=== PATIENT | female | born 1950 | race Caucasian/White ===

== ENCOUNTER → 2017-02-16 | Outpatient (CLI) | payer MEDICARE ==
--- NOTE | 2017-02-16 17:03 | REP ---
PET/CT: History: Diagnosing lung carcinoma. Left lung nodule increased in size. Comparisons: Comparison CT study [facility] 01/31/2017 and 10/26/2016. TECHNIQUE: 43 minutes following the intravenous injection of a 9.8 mCi dose of F-18 FDG, three-dimensional PET scintigraphy is acquired from the skull base to the proximal thighs. Triplanar noncontrast CT scanning is acquired through the same anatomic range for attenuation correction, and image registration with scan parameters optimized to minimize radiation exposure to the patient. PET scintigraphy and CT datasets were fused and displayed on a workstation with multiplanar and projection display capability. PET/CT Findings: There is no discernible FDG accumulation in the vicinity of the tiny left lower lobe pulmonary nodule on today's PET scintigraphy. Maximum standard uptake value in this region is 0.58. No other abnormal hypermetabolic uptake is seen in the thorax. No other pulmonary parenchymal nodule is seen. Head and neck soft tissues are unremarkable. In the abdomen and pelvis, there is normal hepatic, splenic, gastrointestinal and genitourinary FDG accumulation. No abnormal hypermetabolic uptake is seen. A right renal cyst is noted in the upper pole of the right kidney. Impression: Negative PET scintigraphy. No abnormal uptake is seen in the tiny left lower lobe pulmonary nodule. Continued CT follow-up suggested. Signed by Mono Sosa MD 02/16/2017 05:06 P
== END ==
LOC: M RAD 09:44
PROVIDERS: ATTEND Nurse Practitioner Adult Health
DX: R91.1 Solitary pulmonary nodule (principal)
CPT/HCPCS: 78815; A9552

== ENCOUNTER → 2018-02-21 | Outpatient (CLI) | payer MEDICARE ==
[2018-02-21 09:48] LABS: ABG BASE EXCESS 0.6 (-2.0-2.0); ABG HCO3 23.6 MEQ/L (22.0-26.0); ABG O2 SATURATION 97.8 % (95.0-99.0); ABG PARTIAL PRESSURE CO2 33.4 mmHg (35.0-45.0); ABG TOTAL CO2 24.6 MEQ/L (23.0-31.0); ABG pH (ARTERIAL) 7.467 UNITS (7.350-7.450)
== END ==
LOC: M CARPUL 09:03
DX: R06.02 Shortness of breath (principal)
CPT/HCPCS: 94060

== ENCOUNTER → 2018-12-11 | Outpatient (REF) | payer MEDICARE | LOC: M LAB REF 12:34 | PROVIDERS: ATTEND Internal Medicine | DX: Z01.89 Encounter for other specified special examinations (principal) ==

== ENCOUNTER → 2019-03-13 | Outpatient (CLI) | payer MEDICARE ==
--- NOTE | 2019-03-14 10:45 | REP ---
PET/CT: History: Diagnosing solitary pulmonary nodule. Comparison PET/CT February 16, 2017. Comparison chest CT scan is from February 21, 2019. TECHNIQUE: 53 minutes following the intravenous injection of a 9.67 mCi dose of F-18 FDG, three-dimensional PET scintigraphy is acquired from the skull base to the proximal thighs. Triplanar noncontrast CT scanning is acquired through the same anatomic range for attenuation correction, and image registration with scan parameters optimized to minimize radiation exposure to the patient. PET scintigraphy and CT datasets were fused and displayed on a workstation with multiplanar and projection display capability. PET/CT Findings: The recently identified wedge-shaped 2 cm opacity in the right lower lobe posterolateral lung gutter shows mildly hypermetabolic uptake. Maximum SUV value is 2.64. There is no other abnormal pulmonary parenchymal hypermetabolic uptake. No hilar or mediastinal hypermetabolic uptake is seen. The two other identified pulmonary nodules are stable and show no tracer uptake. Head and neck soft tissues are unremarkable. No abnormal uptake is seen in the abdomen or pelvis. There is a right renal cyst. Impression: Minimally hypermetabolic uptake in the wedge-shaped parenchymal opacity in the right lower lobe. This is nonspecific. Its wedge-shaped configuration suggests the possibility of inflammatory or atelectatic change. Interval CT followup recommended. Electronically Signed by Mono Sosa MD 03/14/2019 01:40 P
== END ==
LOC: M PLARAD 15:29
PROVIDERS: ATTEND Internal Medicine Pulmonary Disease
DX: R91.1 Solitary pulmonary nodule (principal)
CPT/HCPCS: 78815; A9552

== ENCOUNTER → 2019-06-07 | Outpatient (CLI) | payer MEDICARE ==
[~2019-06-07] MED LIST: ISOVUE-370 76% 100ML VIAL (Q9967) As Ordered ONE
--- NOTE | 2019-06-07 17:56 | REP ---
HISTORY: Followup pulmonary nodule. COMPARISON: All prior examinations were reviewed including images of lung bases from abdominal and pelvic CT scanning. The latest examination is dated 02/21/2019. The lack of intravenous contrast decreases the sensitivity of the exam. The mediastinum and pulmonary maria isabel are unchanged. There is no evidence of a mass or adenopathy. There are no pleural or pericardial effusions. There is no significant change in the appearance of the imaged upper abdomen. Note is again made of a solitary hepatic cyst in the posterior segment of the right lobe and note is again made of a partial imaged right renal cyst. There is no significant change in the appearance of the images osseous structures. Evaluation of the lung lopez show biapical pleural parenchymal scarring. The pleural based mass density in the right lower lobe seen on the latest prior examination has markedly improved. A minimal residual persists. There is cylindrical bronchiectasis, status quo. There are no new abnormal nodules, masses, or opacities. There is a tiny stable 3 mm sized nodule in the left upper lobe. IMPRESSION: Improvement and chronic changes as described above. There are no new abnormalities. According to the revised [place] Society criteria, yearly CT screening is recommended provided the patient's risk factors remain high. Electronically Signed by Mak Osorio DO 06/08/2019 10:31 A
== END ==
LOC: M RAD 13:31
PROVIDERS: ATTEND Internal Medicine Pulmonary Disease
DX: R91.1 Solitary pulmonary nodule (principal)

== ENCOUNTER 2020-01-16 13:02 | Emergency (ER) | payer MEDICARE ==
[~2020-01-16] VITALS: Ht 160 cm; Wt 64.3 kg
[2020-01-16] MEDS ORDERED: TRAM50TA2 (13:10)
[2020-01-16] MEDS ORDERED: MELO7.5T35 (13:10)
[2020-01-16] MEDS ORDERED: PANT40TA3 (13:10)
[2020-01-16] MEDS ORDERED: MORPHINE 4 MG/ML 1ML VIAL/SYRINGE (J2270) IM ONE (14:15)
[2020-01-16] MEDS ORDERED: ONDANSETRON 4 MG ORAL DISINTEGRATING TAB (Q0162 PER 1MG) PO ONE (15:00)
[2020-01-16] MEDS ORDERED: ONDA4TAB6 PO (15:43)
[2020-01-16] MEDS ORDERED: NORC1TAB7 PO (15:43)
--- NOTE | 2020-01-16 15:55 | REP ---
CT LUMBAR SPINE WITHOUT CONTRAST: HISTORY: Severe left-sided sciatica. Apparently, the patient has a history breast and ovarian carcinoma. Comparison lumbar spine MRI study September 28, 2018. CT FINDINGS: Lumbar vertebral body heights are preserved. Alignment is normal. There is no evidence of spondylolysis or spondylolisthesis. There is degenerative disc disease at multiple levels. There is a vacuum phenomenon and disc space narrowing at L3-4. Minimal narrowing is seen at L4-5 and L2-3. There is discogenic spurring and disc space narrowing at T12-L1. There is a very slight retrolisthesis of T12 posteriorly with respect to L1, 2 mm, unchanged from the comparison MRI study. No bony destructive lesion or collapse is seen. There are surgical clips in the retroperitoneum on the right and along the right iliac lymph node chain. There is a cyst in the right kidney which measures 4.2 cm in greatest diameter. No other extra vertebral abnormality is observed. There is a minimal levoconvex curvature on the coronal multiplanar re-formation images. Mild diffuse disc bulging is seen at T12-L1. No significant abnormality at L1-L2. At L2-L3, there is mild diffuse disc bulging. No central canal stenosis or foraminal narrowing is seen. No disc protrusion is seen. At L3-4, there is a broad-based disc bulge effacing the ventral subarachnoid space. Broad-based disc protrusion is suspected. This appears a bit larger than on the MRI study from September 28, 2018. The midline sagittal dimension of the thecal sac at this level is 9 mm on axial image, previously 11.7 mm. There is minimal ligamentum flavum and facet hypertrophy at L3-4. At L4-L5, there is diffuse disc bulging unchanged from prior study. Ligamentum flavum and facet hypertrophy is noted and canal size is borderline at L4-5 unchanged from the prior study. No bony neural foraminal narrowing is seen. At L5-S1, there is facet hypertrophy. No other significant finding. IMPRESSION: Degenerative spondylosis changes. Broad-based disc bulge/protrusion centrally at L3-4. This is increased in size from September 28, 2018 prior MRI study. It produces mild thecal sac compression. Electronically Signed by Mono Sosa MD 01/16/2020 06:31 P
[2020-01-16 15:57] VITALS: BP 124/57
--- NOTE | 2020-01-17 14:16 | ED PDOC ---
Post-Departure Follow-Up dr cardona faxed formal report of CT ls spine for fu Keely Sales MD Jan 17, 2020 14:16
== END 2020-01-16 15:58 | disposition home or self-care (01) ==
LOC: M ED 13:02
DX: M54.17 Radiculopathy, lumbosacral region (principal); M54.32 Sciatica, left side; M51.37 Other intervertebral disc degeneration, lumbosacral region; Z85.3 Personal history of malignant neoplasm of breast; Z85.43 Personal history of malignant neoplasm of ovary; Z86.79 Personal history of other diseases of the circulatory system; Z79.899 Other long term (current) drug therapy; Z88.6 Allergy status to analgesic agent; Z88.5 Allergy status to narcotic agent; Z88.1 Allergy status to other antibiotic agents
CPT/HCPCS: 72131; 96372; 99283; J2270; Q0162

== ENCOUNTER → 2021-01-09 | Outpatient (CLI) | payer MEDICARE ==
[~2021-01-09] MED LIST changes: -ISOVUE-370 76% 100ML VIAL (Q9967) As Ordered ONE; +MELO7.5T35; +NORC1TAB7 PO; +ONDA4TAB6 PO; +PANT40TA29; +TRAM50TA2
--- NOTE | 2021-01-09 11:48 | REP ---
INDICATION: F/U RT RENAL CYSTCHRONIC COUGH US 1ST XR 2ND COMPARISON: None. TECHNIQUE: PA and lateral. FINDINGS: The mediastinum and cardiac silhouette are normal. The lung lopez are clear and without acute consolidation, effusion, or pneumothorax. The skeletal structures are intact and normal. Evidence for prior right axillary node dissection. IMPRESSION: No acute cardiopulmonary process. <Electronically signed by Gurpreet Amos > 01/09/21 [id number]
--- NOTE | 2021-01-09 11:50 | REP ---
INDICATION: F/U RT RENAL CYSTCHRONIC COUGH US 1ST XR 2ND COMPARISON: None TECHNIQUE: Real time pavon scale ultrasound examination using curved array transducer. FINDINGS: Left kidney measures 9.7 x 3.8 x 4.7 cm and is normal in contour, size, echogenicity, and reniform shape. No hydronephrosis, nephrolithiasis, cystic or renal mass lesion appreciated. Right kidney measures 10.5 x 4.4 x 3.6 cm and includes 4.1 x 4.5 x 4.2 cm simple upper pole cyst. No hydronephrosis, nephrolithiasis, or renal mass lesion. Bladder is unremarkable. IMPRESSION: 4.5 cm simple appearing right upper pole renal cyst. <Electronically signed by Gurpreet Amos > 01/09/21 [id number]
== END ==
LOC: M RAD 11:11
PROVIDERS: ATTEND Internal Medicine
DX: R05 Cough (principal); Z09 Encounter for follow-up examination after completed treatment for conditions other than malignant neoplasm; N28.1 Cyst of kidney, acquired

== ENCOUNTER → 2021-03-25 | Outpatient (CLI) | payer MEDICARE ==
[~2021-03-25] MED LIST changes: +PROHANCE 279.3MG/ML 15ML VIAL As Ordered ONE
--- NOTE | 2021-03-25 11:31 | REPVR ---
PROCEDURE INFORMATION: Exam: MR Lumbar Spine Without and With Contrast Exam date and time: 03/25/2021 10:46 AM Age: 70 years old Clinical indication: Low back pain; Additional info: Ddd lumbar ? mets TECHNIQUE: Imaging protocol: Multiplanar magnetic resonance images of the lumbar spine without and with intravenous contrast. Contrast material: PROHANCE; Contrast volume: 6 ml; Contrast route: INTRAVENOUS (IV); COMPARISON: CT Spine, lumbar w/o contrast 01/16/2020 2:58 PM FINDINGS: Vertebrae: There is a mild lumbar levoscoliosis. There is no fracture or listhesis. There is diffuse marrow heterogeneity, potentially marrow conversion, with superimposed hemangiomas. There is no abnormal enhancement. Spinal cord: The conus medullaris terminates at T12/L1. L1-L2: There is shallow disc bulging. There is mild facet hypertrophy. There is mild right neural foraminal narrowing. L2-L3: There is shallow disc bulging. There is mild facet hypertrophy. There is mild right neural foraminal narrowing. L3-L4: There is shallow disc bulging. There is mild facet hypertrophy. There is [id number] bilateral neural foraminal narrowing. L4-L5: There is diffuse disc bulging. There is moderate facet hypertrophy. There is mild bilateral neural foraminal narrowing. L5-S1: There is shallow disc bulging. There is moderate facet hypertrophy. The spinal canal and neural foramina are patent. Soft tissues: Unremarkable. IMPRESSION: 1. No overt osseous metastatic disease. 2. Degenerative disc disease and spondylosis in a background of mild lumbar levoscoliosis. Electronically signed by: Vanessa Rubalcava On 03/25/2021 11:31:13 AM
== END ==
LOC: M RAD 09:44
PROVIDERS: ATTEND Physical Medicine & Rehabilitation
DX: M41.86 Other forms of scoliosis, lumbar region (principal); M47.896 Other spondylosis, lumbar region; M51.36 Other intervertebral disc degeneration, lumbar region
CPT/HCPCS: 72158; A9576

== ENCOUNTER → 2021-07-10 | Outpatient (CLI) | payer MEDICARE ==
[~2021-07-10] MED LIST changes: -PROHANCE 279.3MG/ML 15ML VIAL As Ordered ONE
--- NOTE | 2021-07-10 11:19 | REPMRS ---
Patient History The patient states she had a clinical breast [id number]. Patient is postmenopausal, has history of cancer in the right breast at age 56, and has history of ovarian cancer at age 53. Also prior excisional biopsy of left side. Negative. No known family history of cancer. Taking unspecified hormones for 2 years. Patient states no breast complaints today. Patient has signed MRS History Sheet. Digital Woman Screen Mammo: July 10, 2021 - Exam #: [id number] Bilateral CC and MLO view(s) were taken. Technologist: Megan Roman, Director Of State Prior study comparison: May 30, 2020, bilateral screening 3D/tomosynthesis, performed at [facility]. November 03, 2019, bilateral screening 3D/tomosynthesis, performed at [facility]. FINDINGS: There are scattered fibroglandular densities. Screening. Digital screening (2D) mammography was performed bilaterally in the CC and MLO projections. Additionally, breast tomosynthesis (3D mammography) was performed bilaterally in the CC and MLO projections. Todays exam was compared to the prior exam/exams. By history, the patient has no complaints of a palpable breast abnormality or other significant breast complaints. The breasts are unchanged in size and shape. There are no breanna-soft tissue densities or spiculated masses. There is no internal architectural distortion. Once again, stable benign appearing calcifications are seen.There are no suspicious breanna-calcific clusters. Skin thickening or nipple retraction is not present. IMPRESSION: BI-RADS Category 2- Benign Findings. There is no evidence of malignant alteration of the breasts. Followup examination recommended in one year. The Volpara volumetric breast density category is B, there are scattered areas of fibroglandular densities. This mammogram was read with the assistance of [facility] [employer]an FDA approved computer aided detection system for mammography. Negative x-ray reports should not delay surgical consultation if a dominant or clinically suspicious mass is present. Not all breast cancers can be identified by mammography. Therefore, we recommend that you continue to perform regular breast self-examination and physical examination and then promptly contact your physician of any concerns or changes. Adenosis and dense breasts may obscure an underlying neoplasm. Assessment: BI-RADS/ACR category 2 mammogram. Benign Findings. Recommendation Routine screening mammogram of both breasts in 1 year. Electronically Signed By: Mak Osorio DO 07/10/21 [id number]
== END ==
LOC: M WHC 10:23
PROVIDERS: ATTEND Obstetrics & Gynecology
DX: Z12.31 Encounter for screening mammogram for malignant neoplasm of breast (principal); Z85.3 Personal history of malignant neoplasm of breast; Z85.43 Personal history of malignant neoplasm of ovary; R92.1 Mammographic calcification found on diagnostic imaging of breast

== ENCOUNTER → 2022-02-18 | Outpatient (CLI) | payer MEDICARE | LOC: M RAD 14:32 | PROVIDERS: ATTEND Chiropractor | DX: M50.33 Other cervical disc degeneration, cervicothoracic region (principal) ==

== ENCOUNTER → 2022-09-22 | Outpatient (CLI) | payer MEDICARE ==
[~2022-09-22] MED LIST changes: +GABA-1171 PO
== END ==
LOC: M LABSMTC 10:46
PROVIDERS: ATTEND Anesthesiology
DX: Z01.812 Encounter for preprocedural laboratory examination (principal); Z20.822 Contact with and (suspected) exposure to COVID-19

== ENCOUNTER 2022-09-27 07:18 | Day surgery (SDC) | payer MEDICARE ==
[~2022-09-27] VITALS: Ht 160 cm; Wt 65.0 kg
[~2022-09-27 07:18] MED LIST changes: +NS 1,000 ML IV ONE
[2022-09-27 09:01] VITALS: BP 123/60
== END 2022-09-27 09:32 | disposition home or self-care (01) ==
LOC: M OPP 07:18
PROVIDERS: ATTEND Internal Medicine Gastroenterology
DX: Z12.11 Encounter for screening for malignant neoplasm of colon (principal); Z86.010 Personal history of colon polyps; D12.6 Benign neoplasm of colon, unspecified; K64.0 First degree hemorrhoids; Z85.3 Personal history of malignant neoplasm of breast; Z85.43 Personal history of malignant neoplasm of ovary; Z92.3 Personal history of irradiation; Z88.1 Allergy status to other antibiotic agents; Z88.5 Allergy status to narcotic agent; Z79.899 Other long term (current) drug therapy

== ENCOUNTER → 2022-10-19 | Outpatient (CLI) | payer MEDICARE ==
[~2022-10-19] MED LIST changes: -NS 1,000 ML IV ONE
== END ==
LOC: M WHC 10:12
PROVIDERS: ATTEND Internal Medicine
DX: Z12.31 Encounter for screening mammogram for malignant neoplasm of breast (principal); Z85.3 Personal history of malignant neoplasm of breast; Z85.43 Personal history of malignant neoplasm of ovary

== ENCOUNTER → 2023-04-22 | Outpatient (CLI) | payer MEDICARE | LOC: M WUC 15:12 | PROVIDERS: ATTEND Physician Assistant | DX: M54.2 Cervicalgia (principal); S46.011A Strain of muscle(s) and tendon(s) of the rotator cuff of right shoulder, initial encounter; M47.812 Spondylosis without myelopathy or radiculopathy, cervical region; M47.813 Spondylosis without myelopathy or radiculopathy, cervicothoracic region ==

== ENCOUNTER → 2023-04-26 | Outpatient (CLI) | payer MEDICARE ==
[2023-04-26 11:52] LABS: ALBUMIN 4.3 G/DL (3.2-5.2); ALKALINE PHOSPHATASE 62 U/L (46-116); ALT/SGPT 19 U/L (7.0-40); AST/SGOT 10 U/L (<34); BILIRUBIN,TOTAL 1.8 MG/DL (0.3-1.2); BLOOD UREA NITROGEN 26 MG/DL (9-23); CALCIUM LEVEL 9.3 MG/DL (8.3-10.6); CARBON DIOXIDE LEVEL 26 MMOL/L (20-31); CHLORIDE LEVEL 108 MMOL/L (98-107); CHOLESTEROL LEVEL 139 MG/DL (<200); CREATININE FOR GFR 0.88 MG/DL (0.55-1.30); GLOMERULAR FILTRATION RATE > 60.0 (>39); GLUCOSE, FASTING 84 MG/DL (74-106); HDL CHOLESTEROL 55.4 MG/DL (>40); LDL CHOLESTEROL 66.6 MG/DL (<100); NON-HDL-C 83.6 MG/DL; POTASSIUM SERUM 4.2 MMOL/L (3.5-5.1); SODIUM LEVEL 140 MMOL/L (136-145); TOTAL PROTEIN 6.7 G/DL (5.7-8.2); TRIGLYCERIDES LEVEL 85 MG/DL (<150)
== END ==
LOC: M LAB 10:42
PROVIDERS: ATTEND Internal Medicine Cardiovascular Disease
DX: E78.00 Pure hypercholesterolemia, unspecified (principal)

== ENCOUNTER → 2023-05-11 | Outpatient (REF) | payer MEDICARE | LOC: M SFHCWAGY 17:47 | PROVIDERS: ATTEND Nurse Practitioner Family | DX: Z12.4 Encounter for screening for malignant neoplasm of cervix (principal); N95.2 Postmenopausal atrophic vaginitis | CPT/HCPCS: 87624; G0123 ==

== ENCOUNTER → 2023-05-11 | Outpatient (CLI) | payer MEDICARE | LOC: M WHC 10:14 | PROVIDERS: ATTEND Internal Medicine | DX: M85.851 Other specified disorders of bone density and structure, right thigh (principal); M85.852 Other specified disorders of bone density and structure, left thigh ==

== ENCOUNTER → 2023-10-20 | Outpatient (CLI) | payer MEDICARE | LOC: M WHC 10:14 | PROVIDERS: ATTEND Internal Medicine | DX: R92.8 Other abnormal and inconclusive findings on diagnostic imaging of breast (principal); Z85.3 Personal history of malignant neoplasm of breast ==

== ENCOUNTER → 2023-11-02 | Outpatient (CLI) | payer MEDICARE | LOC: M WHC 09:01 | PROVIDERS: ATTEND Internal Medicine | DX: R92.8 Other abnormal and inconclusive findings on diagnostic imaging of breast (principal); R92.322 Mammographic fibroglandular density, left breast | CPT/HCPCS: 77065; G0279 ==

== ENCOUNTER → 2024-02-13 | Outpatient (CLI) | payer MEDICARE | LOC: M RAD 16:20 | PROVIDERS: ATTEND Orthopaedic Surgery | DX: M54.50 Low back pain, unspecified (principal); R10.2 Pelvic and perineal pain; M47.816 Spondylosis without myelopathy or radiculopathy, lumbar region; M48.061 Spinal stenosis, lumbar region without neurogenic claudication; R60.0 Localized edema; M46.1 Sacroiliitis, not elsewhere classified ==

== ENCOUNTER → 2024-07-04 | Outpatient (CLI) | payer MEDICARE ==
[~2024-07-04] MED LIST changes: +ONDA-282 PO; -ONDA4TAB6 PO
== END ==
LOC: M WUC 12:31
PROVIDERS: ATTEND Internal Medicine
DX: M50.30 Other cervical disc degeneration, unspecified cervical region (principal)

== ENCOUNTER → 2025-01-11 | Outpatient (CLI) | payer MEDICARE | LOC: M WHC 09:41 | PROVIDERS: ATTEND Internal Medicine | DX: Z12.31 Encounter for screening mammogram for malignant neoplasm of breast (principal) ==

== ENCOUNTER → 2025-03-15 | Outpatient (CLI) | payer MEDICARE | LOC: M RAD 12:06 | PROVIDERS: ATTEND Otolaryngology | DX: E04.1 Nontoxic single thyroid nodule (principal) ==

== ENCOUNTER → 2025-09-30 | Outpatient (REF) | payer MEDICARE ==
[2025-10-02 15:48] LABS: HPV APTIMA Not Detected (Not Detected)
== END ==
LOC: M PLALAB 10:09
PROVIDERS: ATTEND Student in an Organized Health Care Education/Training Program
DX: Z01.419 Encounter for gynecological examination (general) (routine) without abnormal findings (principal)
CPT/HCPCS: 87624; G0123

== ENCOUNTER → 2025-09-30 | Outpatient (CLI) | payer MEDICARE | LOC: M WHC 10:23 | PROVIDERS: ATTEND Internal Medicine | DX: M81.0 Age-related osteoporosis without current pathological fracture (principal); M85.9 Disorder of bone density and structure, unspecified ==